=== PATIENT | male | born 1940 | race Caucasian/White ===

== ENCOUNTER → 2022-01-02 | Outpatient (CLI) | payer SELFPAY ==
[~2022-01-02] MED LIST: ATORVASTATIN CA20 MG PO; ELIQUIS5 M3 PO; FINA5 PO; METOPROLOL SUCC25 MG PO; ZOLP5 PO
[2022-01-02 09:09] LABS: BASOPHILS ABSOLUTE AUTO 0.01 K/mm3 (0.00-0.23); BASOPHILS PERCENT AUTO 0 % (0-2); EOSINOPHILS ABSOLUTE AUTO 0.11 K/mm3 (0.00-0.68); EOSINOPHILS PERCENT AUTO 2 % (0-6); Hematocrit 40.4 % (37.0-53.0); Hemoglobin 13.5 g/dL (13.5-17.5); IMMATURE GRAN ABSOLUTE AUTO 0.01 K/mm3 (0.00-0.10); IMMATURE GRAN PERCENT AUTO 0 % (0-1); LYMPHOCYTES ABSOLUTE AUTO 1.02 K/mm3 (0.84-5.20); LYMPHOCYTES PERCENT AUTO 17 % (21-46); MONOCYTES ABSOLUTE AUTO 0.62 K/mm3 (0.16-1.47); MONOCYTES PERCENT AUTO 10 % (4-13); Mean Corpuscular HGB 33.9 pg (26.0-34.0); Mean Corpuscular HGB Conc 33.4 g/dL (31.5-36.5); Mean Corpuscular Volume 102 fL (80-100); Mean Platelet Volume 10.1 fL (9.1-12.4); NEUTROPHILS ABSOLUTE AUTO 4.23 K/mm3 (1.96-9.15); NEUTROPHILS PERCENT AUTO 71 % (41-73); Platelet Count 207 K/mm3 (150-400); RDW Coefficient Variation 14.1 % (11.7-14.2); RDW Standard Deviation 52.8 fL (35.1-46.3); Red Blood Cell Count 3.98 M/mm3 (4.30-5.90)
[2022-01-02 10:24] LABS: Albumin, Blood 3.7 g/dL (3.4-5.0); Albumin/Globulin Ratio 1.2 (0.8-1.8); Bilirubin, Total 1.1 mg/dL (0.1-1.0); Bun/Creatinine Ratio 21.9 (12.0-20.0); Calcium, Blood 9.8 mg/dL (8.5-10.1); Creatinine, Blood 1.55 mg/dL (0.60-1.20); Globulin, Blood 3.1 g/dL (2.2-4.0); Total Protein, Blood 6.8 g/dL (6.4-8.2)
== END | disposition home or self-care (01) ==
LOC: LAB SHORT 09:06
PROVIDERS: Physician Assistant
DX: R55 Syncope and collapse (principal)
CPT/HCPCS: 80053; 84484; 85025; 85379

== ENCOUNTER 2022-01-04 05:46 | Observation (INO) | payer MEDICARE ==
[~2022-01-04] VITALS: Ht 180.3 cm; Wt 96.4 kg
[2022-01-04] MEDS ORDERED: METOPROLOL SUCC25 MG PO (06:00)
[2022-01-04] MEDS ORDERED: ELIQUIS5 M3 PO (06:00)
[2022-01-04] MEDS ORDERED: ZOLP5 PO (06:00)
[2022-01-04] MEDS ORDERED: ATORVASTATIN CA20 MG PO (06:01)
[2022-01-04 06:50] LABS: BASOPHILS ABSOLUTE AUTO 0.02 K/mm3 (0.00-0.23); BASOPHILS PERCENT AUTO 0 % (0-2); EOSINOPHILS PERCENT AUTO 2 % (0-6); Hematocrit 38.6 % (37.0-53.0); Hemoglobin 12.9 g/dL (13.5-17.5); IMMATURE GRAN ABSOLUTE AUTO 0.03 K/mm3 (0.00-0.10); IMMATURE GRAN PERCENT AUTO 1 % (0-1); LYMPHOCYTES ABSOLUTE AUTO 0.83 K/mm3 (0.84-5.20); LYMPHOCYTES PERCENT AUTO 15 % (21-46); MONOCYTES ABSOLUTE AUTO 0.61 K/mm3 (0.16-1.47); MONOCYTES PERCENT AUTO 11 % (4-13); Mean Corpuscular HGB 33.4 pg (26.0-34.0); Mean Corpuscular HGB Conc 33.4 g/dL (31.5-36.5); Mean Corpuscular Volume 100 fL (80-100); NEUTROPHILS ABSOLUTE AUTO 4.14 K/mm3 (1.96-9.15); NEUTROPHILS PERCENT AUTO 72 % (41-73); Platelet Count 189 K/mm3 (150-400); RDW Standard Deviation 51.2 fL (35.1-46.3); Red Blood Cell Count 3.86 M/mm3 (4.30-5.90); White Blood Cell Count 5.73 K/mm3 (4.00-11.30)
[2022-01-04 07:07] LABS: Albumin, Blood 3.2 g/dL (3.4-5.0); Albumin/Globulin Ratio 0.9 (0.8-1.8); Bilirubin, Total 0.7 mg/dL (0.1-1.0); Bun/Creatinine Ratio 21.9 (12.0-20.0); Calcium, Blood 8.7 mg/dL (8.5-10.1); Creatinine, Blood 1.46 mg/dL (0.60-1.20); Globulin, Blood 3.6 g/dL (2.2-4.0); Potassium, Blood 4.2 mmol/L (3.5-5.5); Total Protein, Blood 6.8 g/dL (6.4-8.2)
[2022-01-04 14:24] LABS: SARS-Cov-2 (COVID-19) PCR, MMC NEGATIVE (NEGATIVE)
--- NOTE | 2022-01-04 14:28 | NUR ---
Pt arrived to 360 via gurney from ED, report obtained, able to stand and transfer to bed but complains of dizziness, one person assist, a/ox3, pleasant and cooperative with care, follows commands well, denies pain, reports he's just sob and dizzy when up, seems anxious about his condition, lungs are clear t/o, dim in bases, resp even and unlabord, on r/a at this time, denies cough, hrirr, will place tele when available, no edema noted, ppp+1, cap refill <3sec, vs stable, afebrile, iv site is clear and patent, btx4, abd round soft nontender, voids without diff, skin c/w/d, quinton miller, oriented to room layout and call system, call light in reach.
[2022-01-04] MEDS ORDERED: FINA5 PO (15:38)
--- NOTE | 2022-01-04 18:23 | NUR ---
Pt doing ok, getting up to the bathroom to void, pretty steady, no acute changes this shift. call light in reach.
--- NOTE | 2022-01-05 04:29 | NUR ---
PATIENT DENIES CP OR SOB DOES REPORT DRY COUGH, URINE OUTPUT REGULAR, PATIENT TOOK ALL HOME MEDICATIONS WITHOUT ASKING, ADVISED PATIENT SEVERAL TIMES ABOUT NOT TAKING HOME MEDICATIONS WITHOUT APPROVAL, ALERT AND ORIENTED TO TIME/PLACE/SELF AND COOPERATIVE
[2022-01-05 04:46] LABS: Hematocrit 41.2 % (37.0-53.0); Hemoglobin 13.9 g/dL (13.5-17.5); Mean Corpuscular HGB 33.7 pg (26.0-34.0); Mean Corpuscular HGB Conc 33.7 g/dL (31.5-36.5); Mean Corpuscular Volume 100 fL (80-100); Mean Platelet Volume 10.4 fL (9.1-12.4); Platelet Count 188 K/mm3 (150-400); RDW Coefficient Variation 13.8 % (11.7-14.2); Red Blood Cell Count 4.12 M/mm3 (4.30-5.90); White Blood Cell Count 4.78 K/mm3 (4.00-11.30)
[2022-01-05 05:12] LABS: Anion Gap 8 mmol/L (6-16); Blood Urea Nitrogen 35 mg/dL (8-24); CHOL/HDL RATIO 3.6; CO2, Blood 25 mmol/L (21-32); Calcium, Blood 8.9 mg/dL (8.5-10.1); Chloride, Blood 107 mmol/L (98-108); Cholesterol 155 mg/dL (50-200); Creatinine, Blood 1.84 mg/dL (0.60-1.20); Glomerular Filtration Rate 37 (60-); Glucose, Blood 95 mg/dL (70-99); HDL Cholesterol 43 mg/dL (>39); LDL/HDL RATIO 1.9; Low Density Lipoprotein Chol 82 mg/dL (0-110); Magnesium, Blood 2.2 mg/dL (1.6-2.4); Potassium, Blood 4.1 mmol/L (3.5-5.5); Sodium, Blood 140 mmol/L (136-145); Triglycerides 148 mg/dL (30-160); Very Low Density Lipoprot Chol 29 mg/dL (6-32)
--- NOTE | 2022-01-05 18:32 | NUR ---
SUMMARY- PT A/O [id number] IN HIS ROOM. AMBULATORY AND STEADY ON FEET. HIGH ANXIETY RELATED TO MEDICAL CONDITION AND HAS FREQ MULT QUESTIONS. TOOK TIME TO EXPLAIN CKD AND CHF, LASIX AND MED ISSUES AT HAND. 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 NO EDEMA. IV LASIX THIS AM. VOIDING GOOD AMOUNTS IN URINAL, DOCUMENTING ACCURATE I/O. PT C/O STICKY COUGH THAT STARTED AGAIN THIS JERRY AND THIS WORRIES HIM IT'S THE SAME COUGH THAT BROUGHT HIM IN TO THE HOSPITAL. ALSO WORRIED THAT COLOSTOMY NOT PRODUCING. CALLED DR NUNO [id number] AND RECEIVED BOWEL CARE ORDERS AND GUIAF ORDER. WILL REPORT TO NOC RN.
--- NOTE | 2022-01-06 05:05 | NUR ---
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 PT ON TELE;AFIB IN 80-90'S; CONTACTED BY DIRECTOR OF PROVIDER RELATIONS TO REPORT EPISODE OF HR IN 130'S; PT HAS HAD ELEVATED DIASTOLIC BP IN 100'S. PT EXPRESSED CONCERN ABOUT NOT BEING ON ENOUGH BLOOD PRESSURE MEDICATIONS AND WANTS TO DISCUSS ADDING A MED OR INCREASING METOPROLOL DOSAGE. PT AWAKE INTERMITANTLY; REQUESTED TYLENOL. PT HAS A COLOSTOMY AND DOES HIS OWN CARE INDEPENDENTLY; CHANGED OSTOMY IN THE NIGHT W/SMALL AMOUNT OF STOOL. PT REPORTS NO BOWEL MOVEMNT FOR 2-3 DAYS; PT C/O CRAMPING. PT CALL LIGHT IN REACH. TELE MONITOR TRANSMITTING.
[2022-01-06 06:13] LABS: Albumin, Blood 3.2 g/dL (3.4-5.0); Anion Gap 8 mmol/L (6-16); Blood Urea Nitrogen 40 mg/dL (8-24); Bun/Creatinine Ratio 20.7 (12.0-20.0); CO2, Blood 24 mmol/L (21-32); Calcium, Blood 9.2 mg/dL (8.5-10.1); Chloride, Blood 105 mmol/L (98-108); Creatinine, Blood 1.93 mg/dL (0.60-1.20); Glomerular Filtration Rate 35 (60-); Glucose, Blood 99 mg/dL (70-99); Phosphorus, Blood 4.1 mg/dL (2.5-4.9); Potassium, Blood 4.5 mmol/L (3.5-5.5); Sodium, Blood 137 mmol/L (136-145)
== END 2022-01-06 12:29 | disposition home or self-care (01) ==
LOC: ER 05:46 → MEDS 05:47 → ERHOLD 05:47 → MEDS 14:17
PROVIDERS: Emergency Medicine; Family Medicine; Nurse Practitioner Acute Care; ADMIT Internal Medicine
DX: I13.0 Hypertensive heart and chronic kidney disease with heart failure and stage 1 through stage 4 chronic kidney disease, or unspecified chronic kidney disease (principal); I50.21 Acute systolic (congestive) heart failure; N18.30 Chronic kidney disease, stage 3 unspecified; I48.91 Unspecified atrial fibrillation; R91.8 Other nonspecific abnormal finding of lung field; Z79.01 Long term (current) use of anticoagulants; I71.4 Abdominal aortic aneurysm, without rupture; E78.5 Hyperlipidemia, unspecified; I70.1 Atherosclerosis of renal artery; G47.00 Insomnia, unspecified; Z20.822 Contact with and (suspected) exposure to COVID-19
CPT/HCPCS: 36415; 71045; 71275; 80048; 80053; 80061; 80069; 83735; 83880; 84484; 85025; 85027; 93005; 93010; 93306; 93971; 96374-59; 96375-59; 96376-59; 99285-25; A9270; J1940; J2405; J3010; Q9967; U0004

== ENCOUNTER → 2022-08-06 | Outpatient (CLI) | payer MEDICARE | END | disposition home or self-care (01) | LOC: LAB SHORT 12:21 → LAB 12:21 → PLD 12:21 | DX: L72.9 Follicular cyst of the skin and subcutaneous tissue, unspecified (principal) | CPT/HCPCS: 88304 ==